=== PATIENT | female | born 1965 | race African-American/Black ===

== ENCOUNTER 2017-01-15 18:54 | Inpatient (IN) | payer OTHER ==
[~2017-01-15] VITALS: Ht 167.6 cm; Wt 104.6 kg
[2017-01-15 20:40] LABS: BASOPHIL COUNT 0.1 K/uL (0-0.1); EOSINOPHIL (%) 1.8 % (0-5); EOSINOPHIL COUNT 0.2 K/uL (0-0.3); IMMATURE GRANULOCYTE (%) 0.2 % (0.0-0.7); INSTRUMENT ABS NEUTROPHIL CT 6.8 K/uL; LYMPHOCYTE COUNT 3.2 K/uL (1.0-2.8); MCH 24.7 PG (29.0-34.0); MCHC 34.3 G/DL (30.0-36.0); MCV 71.8 FL (83-99); MEAN PLAT.VOLUME 12.4 uM^3 (9.5-12.4); MONOCYTE (%) 7.4 % (3-12); MONOCYTE COUNT 0.8 K/uL (0-0.8); NEUTROPHIL (%) 61.5 % (45-76); NEUTROPHIL COUNT 6.8 K/uL (1.8-6.4); PLATELET COUNT 152 K/uL (156-360); RBC DIS.WIDTH-CV 13.2 % (11.8-14.6); RBC DIS.WIDTH-SD 32.8 % (39-53); RED BLOOD COUNT 5.15 M/uL (3.80-5.20); WHITE BLOOD COUNT 11.1 K/uL (4.1-10.2)
[2017-01-15 20:43] LABS: CHLORIDE 109 mEq/L (99-109); POTASSIUM 3.9 mEq/L (3.7-5.4); SODIUM 144 mEq/L (136-147)
[2017-01-15 20:45] LABS: GLUCOSE 83 mg/dL (70-99)
[2017-01-15 20:46] LABS: ANION GAP 11 MEQ/L (2-14)
[2017-01-15 20:47] LABS: TOTAL BILIRUBIN 0.9 mg/dL (0.0-1.0)
[2017-01-15 20:49] LABS: ALKALINE PHOSPHATASE 106 IU/L (3-129); GFR ESTIMATE (CALCULATED) > 59 mL/min/
[2017-01-15 20:50] LABS: UREA NITROGEN (BUN) 15 mg/dL (9-23)
[2017-01-15 20:52] LABS: D-DIMER ELISA 0.59 mg/L FEU (< 0.57); LIPASE 104 U/L (1.0-51.0)
[2017-01-15 21:48] LABS: ADD MIUA? YES; BILIRUBIN NEGATIVE; BLOOD NEGATIVE; COLOR STRAW ((YELLOW)); GLUCOSE (STRIP) NEGATIVE; KETONES NEGATIVE; LEUKOCYTES TRACE; NITRITE NEGATIVE; PROTEIN (STRIP) NEGATIVE; UROBILINOGEN 0.2 MG/DL (0.2-1.0)
[2017-01-15 21:57] LABS: BACTERIA RARE /HPF; EPITHELIAL CELLS RARE /HPF; MUCUS NONE SEEN /LPF; RED BLOOD CELLS 0-5 /HPF (0-5); WHITE BLOOD CELLS 0-5 /HPF (0-5)
[2017-01-16 03:42] LABS: TROP-I INTERPRETATION NEGATIVE; TROPONIN-I < 0.01 ng/mL (0.0-0.30)
[2017-01-16 03:56] VITALS: BP 137/74
[2017-01-16 10:10] LABS: TROP-I INTERPRETATION NEGATIVE; TROPONIN-I < 0.01 ng/mL (0.0-0.30)
[2017-01-16 12:08] VITALS: BP 120/63
[2017-01-16 15:29] LABS: TROP-I INTERPRETATION NEGATIVE; TROPONIN-I < 0.01 ng/mL (0.0-0.30)
[2017-01-16 16:44] VITALS: BP 128/67
[2017-01-16 20:00] VITALS: BP 120/59
[2017-01-17] VITALS (7 sets, daily range): BP systolic 114–137; BP diastolic 58–70
[2017-01-17 07:42] LABS: HEMATOCRIT 32.1 % (36.0-46.0); MCH 24.6 PG (29.0-34.0); MCHC 34.3 G/DL (30.0-36.0); MCV 71.7 FL (83-99); RBC DIS.WIDTH-CV 13.5 % (11.8-14.6); RBC DIS.WIDTH-SD 33.4 % (39-53); RED BLOOD COUNT 4.48 M/uL (3.80-5.20); WHITE BLOOD COUNT 10.4 K/uL (4.1-10.2)
[2017-01-17 08:06] LABS: ANION GAP 10 MEQ/L (2-14); CHLORIDE 105 MEQ/L (99-109); GFR ESTIMATE (CALCULATED) 56 mL/min/; GLUCOSE 92 mg/dL (70-99); POTASSIUM 3.7 MEQ/L (3.7-5.4); SAMPLE HEMOLYSIS CHECK 0; SAMPLE ICTERIC CHECK 0; SAMPLE LIPEMIA CHECK 0; SODIUM 138 MEQ/L (136-147)
[2017-01-17 08:19] LABS: UREA NITROGEN (BUN) 23 mg/dL (9-23)
[2017-01-17 08:51] LABS: MEAN PLAT.VOLUME 12.9 uM^3 (9.5-12.4); PLATELET COUNT 144 K/uL (156-360)
[2017-01-17 09:24] LABS: ADD MIUA? YES; BILIRUBIN NEGATIVE; BLOOD NEGATIVE; COLOR YELLOW ((YELLOW)); GLUCOSE (STRIP) NEGATIVE; KETONES NEGATIVE; LEUKOCYTES TRACE; NITRITE NEGATIVE; PROTEIN (STRIP) NEGATIVE; SPECIFIC GRAVITY 1.014 (1.000-1.030); UROBILINOGEN 0.2 MG/DL (0.2-1.0)
[2017-01-17 10:59] LABS: EPITHELIAL CELLS 1+ /HPF; MUCUS TRACE /LPF; UCUL ADDED? NO; WHITE BLOOD CELLS 0-5 /HPF (0-5)
[2017-01-17 11:12] LABS: BACTERIA RARE /HPF; RED BLOOD CELLS 0-5 /HPF (0-5)
[2017-01-18 03:30] VITALS: BP 137/71
[2017-01-18 09:33] VITALS: BP 153/83
[2017-01-18 11:56] VITALS: BP 153/85
[2017-01-18 19:32] VITALS: BP 145/86
[2017-01-18 23:18] VITALS: BP 143/93
[2017-01-19 03:13] VITALS: BP 145/86
[2017-01-19 07:19] LABS: ANION GAP 8 MEQ/L (2-14); CHLORIDE 107 MEQ/L (99-109); GFR ESTIMATE (CALCULATED) > 59 mL/min/; GLUCOSE 81 mg/dL (70-99); POTASSIUM 3.9 MEQ/L (3.7-5.4); SAMPLE HEMOLYSIS CHECK 0; SAMPLE ICTERIC CHECK 0; SAMPLE LIPEMIA CHECK 0; SODIUM 141 MEQ/L (136-147); UREA NITROGEN (BUN) 19 mg/dL (9-23)
[2017-01-19 07:27] LABS: ABS NEUTROPHIL COUNT 7.5; ANISOCYTOSIS 1+; ATYPICAL LYMPHOCYTE 0.8 %; EOSINOPHIL ABS CT 0.1; EOSINOPHILS 0.8 % (0-5.0); HEMATOCRIT 33.5 % (36.0-46.0); INSTRUMENT ABS NEUTROPHIL CT 7.4 K/uL; LYMPHOCYTES 21.8 % (15.0-45.0); MCH 24.8 PG (29.0-34.0); MCHC 34.3 G/DL (30.0-36.0); MCV 72.4 FL (83-99); MICROCYTOSIS 1+; PLAT.SUFFICIENCY ADEQUATE; RBC DIS.WIDTH-CV 13.8 % (11.8-14.6); RED BLOOD COUNT 4.63 M/uL (3.80-5.20); SEG.NEUTROPHILS 68.5 % (46.0-76.0); WHITE BLOOD COUNT 10.9 K/uL (4.1-10.2)
[2017-01-19 09:00] VITALS: BP 150/89
[2017-01-19 11:30] VITALS: BP 162/91
[2017-01-19 16:59] VITALS: BP 155/87
[2017-01-19 19:01] LABS: PLATELET COUNT 170 K/uL (156-360)
[2017-01-19 20:00] VITALS: BP 163/100
[2017-01-20] VITALS: BP 159/91
[2017-01-20 08:40] VITALS: BP 144/104
[2017-01-20 16:41] VITALS: BP 143/83
[2017-01-20 19:41] VITALS: BP 143/96
[2017-01-20 22:54] VITALS: BP 152/76
[2017-01-21 04:13] VITALS: BP 153/83
[2017-01-21 08:35] VITALS: BP 150/88
[2017-01-21 11:52] VITALS: BP 141/84
[2017-01-21 16:57] VITALS: BP 137/82
[2017-01-21] MEDS ORDERED: GABAPENTIN100 MG PO (17:29)
[2017-01-21] MEDS ORDERED: PHOSPHA250 MG PO (17:30)
[2017-01-21] MEDS ORDERED: PROTONIX40 MG PO (17:31)
[2017-01-21] MEDS ORDERED: PERJETA420 MG/14 IV (17:35)
[2017-01-21] MEDS ORDERED: HERCEPTIN10 MG/0.47 IV (17:36)
[2017-01-21 19:59] VITALS: BP 166/87
[2017-01-22] VITALS (7 sets, daily range): BP systolic 133–176; BP diastolic 73–100
[2017-01-23 08:00] VITALS: BP 136/73
[2017-01-23 10:08] LABS: HEMATOCRIT 38.1 % (36.0-46.0); MCH 24.7 PG (29.0-34.0); MCHC 33.6 G/DL (30.0-36.0); MCV 73.4 FL (83-99); MEAN PLAT.VOLUME 11.8 uM^3 (9.5-12.4); PLATELET COUNT 175 K/uL (156-360); RBC DIS.WIDTH-CV 13.9 % (11.8-14.6); RBC DIS.WIDTH-SD 34.4 % (39-53); RED BLOOD COUNT 5.19 M/uL (3.80-5.20); WHITE BLOOD COUNT 12.5 K/uL (4.1-10.2)
[2017-01-23 10:19] LABS: ALKALINE PHOSPHATASE 70 IU/L (3-129); ANION GAP 9 MEQ/L (2-14); CHLORIDE 102 MEQ/L (99-109); GFR ESTIMATE (CALCULATED) > 59 mL/min/; GLUCOSE 115 mg/dL (70-99); SAMPLE HEMOLYSIS CHECK 0; SAMPLE ICTERIC CHECK 0; SAMPLE LIPEMIA CHECK 0; SODIUM 139 MEQ/L (136-147); TOTAL BILIRUBIN 0.5 MG/DL (0.0-1.0); UREA NITROGEN (BUN) 17 mg/dL (9-23)
[2017-01-23 13:12] VITALS: BP 139/73
[2017-01-23 16:06] VITALS: BP 139/74
[2017-01-23 17:32] LABS: ADD MIUA? YES; BILIRUBIN NEGATIVE; BLOOD NEGATIVE; COLOR STRAW ((YELLOW)); GLUCOSE (STRIP) NEGATIVE; KETONES NEGATIVE; LEUKOCYTES LARGE; NITRITE NEGATIVE; PROTEIN (STRIP) NEGATIVE; SPECIFIC GRAVITY 1.009 (1.000-1.030); UROBILINOGEN 0.2 MG/DL (0.2-1.0)
[2017-01-23 17:52] LABS: BACTERIA NONE SEEN /HPF; EPITHELIAL CELLS 1+ /HPF; MUCUS TRACE /LPF; UCUL ADDED? NO
[2017-01-23 22:42] VITALS: BP 139/78
[2017-01-24 08:00] VITALS: BP 118/72
[2017-01-24 16:00] VITALS: BP 145/82
[2017-01-24 16:55] VITALS: BP 145/82
[2017-01-24 22:38] VITALS: BP 131/74
[2017-01-25 07:29] VITALS: BP 153/86
[2017-01-25 15:46] VITALS: BP 156/88
[2017-01-25 22:33] VITALS: BP 153/80
[2017-01-26 07:22] VITALS: BP 164/94
[2017-01-26 16:10] VITALS: BP 135/94
[2017-01-26] MEDS ORDERED: AMLODIPINE BESYL5 MG PO (16:13)
[2017-01-26] MEDS ORDERED: PREDNISONE10 MG PO (16:14)
[2017-01-26] MEDS ORDERED: MORPHINE SULFAT15 M1 PO (16:15)
[2017-01-26] MEDS ORDERED: ENDOCET 5-3251 EACH PO (16:15)
[2017-01-26] MEDS ORDERED: FENTANYL1 EAC5 TD (16:15)
[2017-01-26 23:25] VITALS: BP 147/89
[2017-01-27 07:25] VITALS: BP 139/94
== END 2017-01-27 15:14 | DRG 552 ==
LOC: EDBD 18:54 → EME 18:54 → EDOF 01-16 02:39 → 5WEST 01-16 03:44 → 5SOUTH 01-16 16:17 → 5WEST 01-16 16:17 → 5SOUTH 01-18 17:47 → 5EAST 01-22 23:09
PROVIDERS: Emergency Medicine; Hospitalist
DX: M54.5 Low back pain (principal); C50.912 Malignant neoplasm of unspecified site of left female breast; C78.7 Secondary malignant neoplasm of liver and intrahepatic bile duct; K59.00 Constipation, unspecified; Z79.899 Other long term (current) drug therapy; M51.36 Other intervertebral disc degeneration, lumbar region; M50.222 Other cervical disc displacement at C5-C6 level; M51.34 Other intervertebral disc degeneration, thoracic region
CPT/HCPCS: 70553; 71010; 71275; 72156; 72157; 72158; 74177; 74183; 77075; 80048; 80053; 81003; 83690; 84484; 85025; 85027; 85379; 93971; 97530 GO; 97530 GP; 99281; 99285; C9113; J1100; J1170; J1200; J1650; J1885; J2405; J3010; J3360; J7030; J7050; J7512; J9355; Q0169